=== PATIENT | male | born 1990 | race Caucasian/White ===

== ENCOUNTER 2021-10-25 14:39 | Emergency (ER) | payer OTHER, SELFPAY ==
[2021-10-25 14:48] VITALS: BP 143/77; PULSE 92; RESP 16; TEMP 36.5; O2SAT 98
--- NOTE | 2021-10-25 14:53 | ED.URI ---
HPI - URI/Sore Throat General Chief Complaint: Upper Respiratory Infection Stated Complaint: Cough Source: patient, RN notes reviewed and old records reviewed Mode of arrival: ambulatory History of Present Illness HPI Narrative: 31 year old male who presents [facility] with complaints of cough for the past 1 week duration. 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 Patient reports that he has been coughing a lot during the day and his cough has been productive of clear mucous at times. Patient reports that he has taken home COVId tests which have been negative, has had COVID in past. Patient reports that he has been taking some imelda seltzer cold and flu medication OTC. Patient denies any known fevers, chills or sweats, denies any body aches or any shortness of breath. MD elicited complaint: cough Onset (ago): week(s) (1) Treatments prior to arrival: cold medicine Related Data Home Medications Medication Instructions Recorded Confirmed dextroamphetamine-amphetamine 15 15 mg PO DAILY 10/25/21 10/25/21 mg tablet fluoxetine 20 mg capsule 20 mg PO DAILY 10/25/21 10/25/21 omeprazole 20 mg capsule,delayed 20 mg PO DAILY 10/25/21 10/25/21 release pregabalin 75 mg capsule 75 mg PO DAILY 10/25/21 10/25/21 Allergies Allergy/AdvReac Type Severity Reaction Status Date / Time No Known Allergies Allergy Verified 10/25/21 14:49 Review of Systems Review of Systems: CONSTITUTIONAL: Denies fever, chills, or sweats. EYES: Denies visual changes, redness, or discharge. ENT: Reports some rhinorrhea,sinus congestion, no sore throat, or otalgia. CARDIOVASCULAR: Denies chest pain, palpitations, or edema. RESPIRATORY: Positive for cough denies dyspnea. GASTROINTESTINAL: Denies abdominal pain, nausea, vomiting, or diarrhea. GENITOURINARY: Denies dysuria or hematuria. SKIN: Denies rash or itching. MUSCULOSKELETAL: Denies back pain, joint pain, or myalgia. NEUROLOGIC: Denies headache, numbness, or weakness. PSYCHIATRIC:Positive for anxiety or depression. All systems reviewed & are unremarkable except as noted in HPI and below PMFSH Past Medical History Medical History (Updated 10/26/21 @ 09:22 by Monique Menendez NP) ADHD (attention deficit hyperactivity disorder) Anxiety GERD (gastroesophageal reflux disease) Obstructive sleep apnea Surgical History Surgical History (Updated 10/26/21 @ 09:15 by Monique Menendez NP) No history of previous surgery Social History Social History (Updated 10/26/21 @ 09:23 by Monique Menendez NP) Smoking status: Never smoker Alcohol intake: current Alcohol use details: social Substance use: never Substance use type: does not use Living arrangements: with family Gender identity (if verbalized by the patient): Male Comments At time of signature, agree with nursing past medical, surgical, social and family history. There is no relevant family history pertinent to the presenting complaint Exam Narrative: GENERAL: Well-appearing, well-nourished, and in no acute distress. HEAD: Normocephalic, atraumatic. EYES: PERRLA and EOMI. ENT: Nares with minimal redness, clear rhinorrhea no epistaxis. Mucous membranes moist. TM's with normal light reflex, throat with mild redness no lesions or tonsil swelling post nasal drainage noted NECK: Supple.no lymphadenopathy CHEST: Clear to auscultation. No respiratory distress.SAO2 98% on room air, harsh non productive cough noted, no tachypnea HEART: Regular rate and rhythm. No murmur heard. Normal peripheral pulses. ABDOMEN: Soft, nontender, nondistended, normal active bowel sounds. EXTREMITIES: Normal range of motion. No edema. SKIN: Warm, dry, no rash. NEURO: No focal deficits. Alert and oriented x3. Course Course Level of Care: Express Care Visit Vital Signs Vital signs: Vital Signs Temperature 36.5 C 10/25/21 14:48 Pulse Rat
== END 2021-10-25 15:31 | disposition home or self-care (01) ==
PROVIDERS: Emergency Provider Registered Nurse; PCP Family Medicine
DX: J06.9 Acute upper respiratory infection, unspecified (principal); F90.9 Attention-deficit hyperactivity disorder, unspecified type; G47.33 Obstructive sleep apnea (adult) (pediatric); F41.9 Anxiety disorder, unspecified; K21.9 Gastro-esophageal reflux disease without esophagitis
CPT/HCPCS: 99213; G0463